=== PATIENT | female | born 1990 | race Caucasian/White ===

== ENCOUNTER 2017-11-26 14:14 | Emergency (ER) | payer OTHER ==
[2017-11-26] MEDS ORDERED: Tetan/Diph/Pertus SYR(Tdap)* 0.5 ML SYR(BOOSTRIX) use SYR IM ONE (15:16)
--- NOTE | 2017-11-26 16:02 | ED ---
Skin Complaint - HPI Summary HPI Summary: Patient is a 27-year-old female presenting to the ED 30 minutes after a pinch to the left middle ring finger. The area has a 0.3 cm blood blister which is extending approximately 0.2 cm from the skin. Tetanus is not up-to-date. She endorses a 1/10 pain currently and was concerned for necrosis of the skin. She is otherwise healthy, takes no medications, denies blood thinners. - History of Current Complaint Chief Complaint: EDExtremityUpper Time Seen by Provider: 11/26/17 14:18 Stated Complaint: LT HAND INJURY Hx Obtained From: Patient Onset/Duration: Started Hours Ago Skin Exposure Onset/Duration: Hours Ago Timing: Constant Onset Severity: Moderate Current Severity: Moderate Pain Intensity: 6 Pain Scale Used: 0-10 Numeric Skin Location: Other: - left ring finger Aggravating Symptom(s): Nothing Alleviating Symptom(s): Nothing Associated Signs & Symptoms: Negative Related History: Trauma - Allergy/Home Medications Allergies/Adverse Reactions: Allergies Allergy/AdvReac Type Severity Reaction Status Date / Time No Known Allergies Allergy Verified 11/26/17 14:19 Home Medications: Home Medications NK [No Home Medications Reported] 11/26/17 [History Confirmed 11/26/17] PMH/Surg Hx/FS Hx/Imm Hx Previously Healthy: Yes - Immunization History Hx Pertussis Vaccination: No Immunizations Up to Date: Unable to Obtain/Confirm Infectious Disease History: No Infectious Disease History: Denies: Traveled Outside the [place] in Last 30 Days - Social History Occupation: Employed Part-time Lives: Dormitory/Roommates Alcohol Use: None Hx Substance Use: No Substance Use Type: Reports: None Hx Tobacco Use: No Smoking Status (MU): Never Smoked Tobacco Review of Systems Constitutional: Negative Negative: Fever, Chills, Skin Diaphoresis Negative: Palpitations, Chest Pain Negative: Shortness Of Breath, Cough Genitourinary: Negative Positive: no symptoms reported, see HPI Positive: Other - small .3cm blood blister to the skin Neurological: Negative All Other Systems Reviewed And Are Negative: Yes Physical Exam Triage Information Reviewed: Yes Vital Signs On Initial Exam: Initial Vitals Temp Pulse Resp BP Pulse Ox 98.3 F 84 16 117/66 99 11/26/17 14:15 11/26/17 14:15 11/26/17 14:15 11/26/17 14:15 11/26/17 14:15 Vital Signs Reviewed: Yes Appearance: Positive: Well-Appearing, Well-Nourished Skin: Positive: Warm, Skin Color Reflects Adequate Perfusion, Other - small .3cm blood blister to the left ring finger Head/Face: Positive: Normal Head/Face Inspection Eyes: Positive: EOMI, RU, Conjunctiva Clear Neck: Positive: Nontender, No Lymphadenopathy Respiratory/Lung Sounds: Positive: Breath Sounds Present Cardiovascular: Positive: Normal Neurological: Positive: Sensory/Motor Intact Psychiatric: Positive: Normal Diagnostics - Vital Signs Vital Signs Temp Pulse Resp BP Pulse Ox 11/26/17 14:15 98.3 F 84 16 117/66 99 - Laboratory Lab Statement: Any lab studies that have been ordered have been reviewed, and results considered in the medical decision making process. Course/Dx - Course Course Of Treatment: Patient concern for necrosis of the skin due to a blackened raised area after pinching her finger in a lab. The area is approximately .3 cm in length and is raised approximately .2 cm from the skin. I have advised bandage to the area and she will not puncture the blood blister for drainage. The area was cause wrapped. Tetanus updated. She will change the gauze and one day then leave open to air. She understands these instructions. - Differential Diagnoses - Skin Complaint Differential Diagnoses: Other - Trauma, abrasion - Diagnoses Provider Diagnoses: Blood blister Discharge - Sign-Out/Discharge Documenting (check all that apply): Discharge/Admit/Transfer - Discharge Plan Condition: Stable Disposition: HOME Referrals: No Primary Care Phys,NOPCP [Primary Care Provider] - Additional Instructions: Keep bandage applied until this evening or until tomorrow morning Then, you may switch to a bandaid Do not break the blood blister If it breaks on its own, rinse the area, pat it dry and place a bandaid over the area Leave open to air after 2-3 days - Billing Disposition and Condition Condition: STABLE Disposition: Home
[2017-11-26 16:13] VITALS: BP 95/67
== END 2017-11-26 16:10 | disposition home or self-care (01) ==
LOC: ED 14:14
DX: S60.425A Blister (nonthermal) of left ring finger, initial encounter (principal); W23.0XXA Caught, crushed, jammed, or pinched between moving objects, initial encounter; Y92.89 Other specified places as the place of occurrence of the external cause
CPT/HCPCS: 90471; 90715; 99282

== ENCOUNTER 2017-12-02 10:27 | Emergency (ER) | payer OTHER ==
[2017-12-02 12:07] LABS: Hematocrit 36 % (35-47); Hemoglobin 11.8 g/dl (12.0-16.0); Mean Corpuscular HGB Conc 33 g/dl (31-36); Mean Corpuscular Hemoglobin 23 pg (27-31); Mean Corpuscular Volume 72 fL (80-97); Mean Platelet Volume 9.4 um3 (7.4-10.4); Platelet Count 237 10^3/ul (150-450); Red Blood Count 5.02 10^6/ul (4.00-5.40); Red Cell Distribution Width 21 % (10.5-15)
[2017-12-02 12:21] LABS: EGFR Non-African American 113.4 (>60)
[2017-12-02 12:26] LABS: ABS Basophils 0.1 10^3/ul (0-0.2); ABS Eosinophils 0.3 10^3/ul (0-0.6); ABS Lymphocytes 1.7 10^3/ul (1.0-4.8); ABS Monocytes 0.6 10^3/ul (0-0.8); ABS Neutrophils 5.2 10^3/ul (1.5-7.7); ABS Nucleated RBC 0 10^3/ul; Eosinophil % 4.3 % (0-6); Lymphocyte % 21.9 % (25-47); Nucleated Red Blood Cells % 0
--- NOTE | 2017-12-02 12:47 | ED ---
Upper Extremity Pain - HPI Summary HPI Summary: [id number] patient here with left deltoid pain and swelling since tetanus shot one week ago. She reports this soreness has been gradually improving each day however yesterday she lifted heavy bags while shopping and this seemed to make the soreness worse. Shortly after she noticed that her muscle was stiff and a little more swollen and warm to touch. This morning, she applied a heat pack and reports it feels better. She simply came in to get checked out. Notes that she had some mild fatigue over the past 2 days but again today feels much better. Denies fever, chills, drainage, numbness, tingling, weakness. - History of Current Complaint Chief Complaint: EDExtremityUpper Stated Complaint: ARM PAIN FOLLOWING INJECTION Time Seen by Provider: 12/02/17 11:07 Hx Obtained From: Patient - Allergies/Home Medications Allergies/Adverse Reactions: Allergies Allergy/AdvReac Type Severity Reaction Status Date / Time No Known Allergies Allergy Verified 12/02/17 10:35 PMH/Surg Hx/FS Hx/Imm Hx Previously Healthy: Yes Endocrine/Hematology History: Denies: Hx Anticoagulant Therapy, Hx Blood Disorders, Autoimmune Disease - Immunization History Immunizations Up to Date: Yes Infectious Disease History: No Infectious Disease History: Denies: Traveled Outside the [place] in Last 30 Days - Family History Known Family History: Positive: Unknown - Social History Occupation: Student Lives: Dormitory/Roommates Alcohol Use: None Hx Substance Use: No Substance Use Type: Reports: None Hx Tobacco Use: No Smoking Status (MU): Never Smoked Tobacco Review of Systems Constitutional: Negative Negative: Fever, Chills, Fatigue Negative: Chest Pain Negative: Shortness Of Breath Negative: Vomiting, Nausea Positive: no symptoms reported Positive: Myalgia Skin: Negative Neurological: Negative Psychological: Normal All Other Systems Reviewed And Are Negative: Yes Physical Exam Triage Information Reviewed: Yes Vital Signs On Initial Exam: Initial Vitals Temp Pulse Resp BP Pulse Ox 97.3 F 72 16 102/64 99 12/02/17 10:31 12/02/17 10:31 12/02/17 10:31 12/02/17 10:31 12/02/17 10:31 Vital Signs Reviewed: Yes Appearance: Positive: Well-Appearing, No Pain Distress, Well-Nourished Skin: Positive: Warm, Skin Color Reflects Adequate Perfusion, Dry - no erythema , no ecchymosis over effected area - small area of healed needle injection site - no erythema, no pusutule, no drainage, no streaking Head/Face: Positive: Normal Head/Face Inspection Eyes: Positive: EOMI ENT: Positive: Hearing grossly normal Neck: Positive: Supple, Nontender, No Lymphadenopathy - cervical, axillary and humeral Respiratory/Lung Sounds: Positive: Breath Sounds Present Cardiovascular: Positive: Pulses are Symmetrical in both Upper and Lower Extremities - no UE edema Musculoskeletal: Positive: Strength/ROM Intact, Pain @ - Lt delt mild TTP - appears equal in size when compared to Rt delt at rest however w/ abduction, Lt delt is noticably larger Neurological: Positive: Normal, Sensory/Motor Intact, Alert, Oriented to Person Place, Time, CN Intact II-III Psychiatric: Positive: Normal Diagnostics - Vital Signs Vital Signs Temp Pulse Resp BP Pulse Ox 12/02/17 10:31 97.3 F 72 16 102/64 99 - Laboratory Lab Results: Lab Results 12/02/17 12/02/17 12/02/17 Range/Units 11:55 11:55 11:55 WBC 8.0 (3.5-10.8) 10^3/ul RBC 5.02 (4.00-5.40) 10^6/ul Hgb 11.8 L (12.0-16.0) g/dl Hct 36 (35-47) % MCV 72 L (80-97) fL MCH 23 L (27-31) pg MCHC 33 (31-36) g/dl RDW 21 H (10.5-15) % Plt Count 237 (150-450) 10^3/ul MPV 9.4 (7.4-10.4) um3 Neut % (Auto) 65.4 (38-83) % Lymph % (Auto) 21.9 L (25-47) % [place] % (Auto) 7.8 H (0-7) % Eos % (Auto) 4.3 (0-6) % Baso % (Auto) 0.6 (0-2) % Absolute Neuts (auto) 5.2 (1.5-7.7) 10^3/ul Absolute Lymphs (auto) 1.7 (1.0-4.8) 10^3/ul Absolute Monos (auto) 0.6 (0-0.8) 10^3/ul Absolute Eos (auto) 0.3 (0-0.6) 10^3/ul Absolute Basos (auto) 0.1 (0-0.2) 10^3/ul Absolute Nucleated RBC 0 10^3/ul Nucleated RBC % 0 Sodium 138 (135-145) mmol/L Potassium 4.0 (3.5-5.0) mmol/L Chloride 106 (101-111) mmol/L Carbon Dioxide 26 (22-32) mmol/L Anion Gap 6 (2-11) mmol/L BUN 8 (6-24) mg/dL Creatinine 0.63 (0.51-0.95) mg/dL Est GFR ( Amer) 137.2 (>60) Est GFR (Non-Af Amer) 113.4 (>60) BUN/Creatinine Ratio 12.7 (8-20) Glucose 90 (70-100) mg/dL Lactic Acid 0.8 (0.5-2.0) mmol/L Calcium 9.3 (8.6-10.3) mg/dL Total Bilirubin 0.50 (0.2-1.0) mg/dL AST 20 (13-39) U/L ALT 13 (7-52) U/L Alkaline Phosphatase 49 (34-104) U/L C-Reactive Protein 2.23 (<8.01) mg/L Total Protein 8.2 (6.4-8.9) g/dL Albumin 4.6 (3.2-5.2) g/dL Globulin 3.6 (2-4) g/dL Albumin/Globulin Ratio 1.3 (1-3) Result Diagrams: 12/02/17 11:55 12/02/17 11:55 Lab Statement: Any lab studies that have been ordered have been reviewed, and results considered in the medical decision making process. Course/Dx - Course Course Of Treatment: Labs and vitals do not indicate infection in the tissue. SUspect she strained this already injured muscle while lifting yesterday. Encouraged continued rest from lifting w/ gentle ROM exercises to promote healing and prevent stiffness. She may also continue heat alternating with ice as needed along with ibuprofen/acetaminophen for pain. Sx should continue to improve and she will f/u w/ PCP if sx persist. If worse, will return to ED. - Diagnoses Provider Diagnoses: Strain of left deltoid muscle Discharge - Sign-Out/Discharge Documenting (check all that apply): Discharge/Admit/Transfer - Discharge Plan Condition: Stable Disposition: HOME Patient Education Materials: Muscle Strain (ED) Referrals: [facility] - Juan Francisco URIBE [Medical Doctor] - Additional Instructions: Suspect you strained your deltoid muscle while lifting yesterday. Encouraged to continue to rest from lifting but continue gentle range of motion exercises to promote healing and prevent stiffness. You may also continue heat alternating with ice as needed along with ibuprofen/acetaminophen for pain. Follow-up with PCP at [facility] is symptoms persist. If worse or you develop fever, chills, numbness, tingling, weakness in arm will return to ED. - Billing Disposition and Condition Condition: STABLE Disposition: Home
[2017-12-02 12:53] VITALS: BP 112/60
== END 2017-12-02 12:53 | disposition home or self-care (01) ==
LOC: ED 10:27
DX: S46.812A Strain of other muscles, fascia and tendons at shoulder and upper arm level, left arm, initial encounter (principal); X50.9XXA Other and unspecified overexertion or strenuous movements or postures, initial encounter; X50.0XXA Overexertion from strenuous movement or load, initial encounter; Y93.89 Activity, other specified; Y92.9 Unspecified place or not applicable
CPT/HCPCS: 36415; 80053; 83605; 85025; 86140; 99281